=== PATIENT | female | born 1980 | race Hispanic/Latino ===

== ENCOUNTER 2023-01-09 10:41 | Emergency (ER) | payer BC ==
[~2023-01-09] VITALS: Ht 160 cm; Wt 81.2 kg
[2023-01-09] VITALS (11 sets, daily range): BP systolic 125–214; BP diastolic 78–195
[~2023-01-09 10:41] MED LIST: CIPRO500 MG OR; NO MEDS
[2023-01-09 11:22] LABS: BASO% 0.5 % (0-3); EOS% 2.3 % (0-8); IMMATURE GRANULOCYTES 0.2 % (0.0-5.0); LYMPH% 27.8 % (15-41); MEAN CELL VOLUME 91.1 fL CALC (80.0-100.0); MEAN CORPUSCULAR HGB 30.7 pG CALC (26.0-32.0); MEAN CORPUSCULAR HGB CONC 33.8 g/dL CAL (32.0-36.0); NEUT# 5.58 thou/uL (2.00-7.15); NEUT% 61.2 % (42-76); RED BLOOD COUNT 4.36 mill/uL (4.20-5.60); RED CELL DISTRI WIDTH 12.5 % (11.5-15.5)
[2023-01-09 11:23] LABS: HEMATOCRIT 39.7 % (37.0-47.0); HEMOGLOBIN 13.4 g/dl (12.0-16.0)
[2023-01-09 11:38] LABS: BILIRUBIN, TOTAL 0.4 mg/dL (0.02-1.3); BUN 12 mg/dL (7-17); BUN/CREATININE RATIO 15 (12-20 (CALC)); CHLORIDE 105 mmol/l (95-108); CREATININE 0.8 mg/dL (0.5-1.0); GFR FOR AFR.AMER. > 60 ML/MIN (>=60 (CALC)); GFR OTHER RACES > 60 ML/MIN (>=60 (CALC)); POTASSIUM 4.2 mmol/l (3.5-5.1); SODIUM 139 mmol/l (137-146); TOTAL PROTEIN 7.3 g/dL (6.3-8.2)
[2023-01-09 11:41] LABS: ALBUMIN 4.5 g/dL (3.2-5.0); ALKALINE PHOSPHATASE 70 u/l (38-126); ANION GAP 11 (6-22 (CALC)); CARBON DIOXIDE 27 mmol/l (22-30); SGOT/AST 33 u/l (14-36)
[2023-01-09] MEDS ORDERED: MECLIZINE25 MG PO (12:06)
== END 2023-01-09 13:21 | disposition home or self-care (01) | DRG 103 ==
LOC: ED 10:41
PROVIDERS: Family Medicine
DX: R51.9 Headache, unspecified (principal)